=== PATIENT | male | born 1975 | race American Indian/Alaskan Native ===

== ENCOUNTER 2021-01-12 16:30 | Emergency (ER) | payer BC ==
[2021-01-12] MEDS ORDERED: HYDROcodone/ACETAMINOPHEN 5-325 MG TAB PO ONE (17:14)
--- NOTE | 2021-01-12 17:14 | Emergency Department Report ---
Blank Doc - Documentation Documentation: MSE was completed. Patient is here with left knee pain. This was nontraumatic. It is swollen. He has only localized pain. He may benefit from arthrocentesis. Radiographs were ordered. Another provider will follow up and arrange disposition.
--- NOTE | 2021-01-12 17:55 | XRay Report ---
Left knee-3 views INDICATION: effusion, L knee pain . COMPARISON: None. IMPRESSION: No acute osseous abnormality. Bipartite patella. Moderate-sized suprapatellar joint effu thang. Normal alignment. Mild medial and patellofemoral compartment DJD. Signer Name: Tray Pichardo MD Signed: 01/12/2021 5:51 PM Workstation Name: [id number]
--- NOTE | 2021-01-12 18:47 | Emergency Department Report ---
<VENECIA DANIELSON - Last Filed: 01/12/21 21:29> ED Extremity Problem HPI - General Chief complaint: Extremity Problem,Nontraumatic Stated complaint: LT KNEE INFLAMED PAIN Time Seen by Provider: 01/12/21 18:01 - Related Data Previous Rx's Medication Instructions Recorded Last Taken Type Acetaminophen/Codeine [Tylenol #3] 1 tab PO Q6H PRN #20 tab 06/05/13 Unknown Rx predniSONE [Deltasone] 50 mg PO QDAY #5 tab 06/05/13 Unknown Rx Acetaminophen with Codeine 1 each PO Q6HR #12 tablet 12/31/19 Unknown Rx [Acetaminophen-Codeine #4 TAB] Naproxen [Naprosyn] 500 mg PO BID #20 tablet 12/31/19 Unknown Rx Prednisone [predniSONE 10 mg 10 mg PO .TAPER #1 tab.ds.pk 12/31/19 Unknown Rx (6-Day Pack, 21 Tabs)] Ondansetron [Zofran Odt] 4 mg PO Q8HR PRN #14 tab.rapdis 01/12/21 Unknown Rx traMADoL [Ultram] 50 mg PO Q6HR PRN #14 tablet 01/12/21 Unknown Rx Allergies Allergy/AdvReac Type Severity Reaction Status Date / Time No Known Allergies Allergy Unverified 06/05/13 08:45 ED Past Medical Hx - Medications Home Medications: Home Medications Medication Instructions Recorded Confirmed Last Taken Type Acetaminophen/Codeine [Tylenol #3] 1 tab PO Q6H PRN #20 tab 06/05/13 Unknown Rx predniSONE [Deltasone] 50 mg PO QDAY #5 tab 06/05/13 Unknown Rx Acetaminophen with Codeine 1 each PO Q6HR #12 tablet 12/31/19 Unknown Rx [Acetaminophen-Codeine #4 TAB] Naproxen [Naprosyn] 500 mg PO BID #20 tablet 12/31/19 Unknown Rx Prednisone [predniSONE 10 mg 10 mg PO .TAPER #1 tab.ds.pk 12/31/19 Unknown Rx (6-Day Pack, 21 Tabs)] Ondansetron [Zofran Odt] 4 mg PO Q8HR PRN #14 tab.rapdis 01/12/21 Unknown Rx traMADoL [Ultram] 50 mg PO Q6HR PRN #14 tablet 01/12/21 Unknown Rx ED Medical Decision Making - Radiology Data Radiology results: report reviewed - Medical Decision Making Patient came in secondary to left knee pain. There is no history of injury or trauma. This started over the last several days and progressively worsened. He has gotten more more pain and more more swelling. The swelling is causing so much pain that he cannot walk. He has no fevers or chills per there is no cough congestion. Is never had symptoms like this before. There is no other joint involvement. Pain is constant and worse with weightbearing, palpation, and movement. Synovial fluid analysis showed a white blood cells of 11,000. Negative crystals. Given the patient clinical presentation and synovial fluid finding, I do not think this is a septic arthritis however patient strongly advised to return to the ER if he develop any fever or if his symptoms is getting worse. Patient given prescription for pain and advised to follow-up with his primary care physician in the next 2 to 3 days and to return to the ER if he develop any new symptoms. Patient also informed that there is a fluid culture that is still pending and he should receive a call after the culture resulted. ED Disposition Clinical Impression: Effusion, left knee, Acute knee pain Disposition: HOME / SELF CARE / HOMELESS Condition: Stable Instructions: Acute Knee Pain, Adult, Knee Effusion, [id number], Arthritis Prescriptions: traMADoL [Ultram] 50 mg PO Q6HR PRN #14 tablet PRN Reason: Pain Ondansetron [Zofran Odt] 4 mg PO Q8HR PRN #14 tab.rapdis PRN Reason: Nausea And Vomiting Referrals: NURIA HECK MD [Staff Physician] - 3-5 Days Forms: Work/School Release Form(ED) <JAREN FAJARDO - Last Filed: 01/13/21 09:22> ED Extremity Problem HPI - General Source: patient Mode of arrival: Wheelchair Limitations: No Limitations - History of Present Illness Initial comments: Patient came in secondary to left knee pain. There is no history of injury or trauma. This started over the last several days and progressively worsened. He has gotten more more pain and more more swelling. The swelling is causing so much pain that he cannot walk. He has no fevers or chills per there is no cough congestion. Is never had symptoms like this before. There is no other joint involvement. Pain is constant and worse with weightbearing, palpation, and movement. Severity scale (0 -10): 8 ED Review of Systems ROS: Stated complaint: LT KNEE INFLAMED PAIN Other details as noted in HPI Comment: All other systems reviewed and negative Constitutional: denies: fever Eyes: denies: eye pain ENT: denies: throat pain Respiratory: denies: cough Cardiovascular: denies: chest pain Endocrine: denies: unexplained weight loss Gastrointestinal: denies: abdominal pain Genitourinary: denies: dysuria Musculoskeletal: denies: back pain Skin: denies: rash Neurological: denies: headache Hematological/Lymphatic: denies: easy bruising ED Past Medical Hx - Past Medical History Previous Medical History?: Yes Hx Asthma: Yes (childhood asthma) - Surgical History Past Surgical History?: No - Family History Family history: no significant - Social History Smoking Status: Never Smoker Substance Use Type: None ED Physical Exam - General Limitations: No Limitations General appearance: alert, in distress (Uncomfortable), obese - Head Head exam: Present: atraumatic, normocephalic, normal inspection - Eye Eye exam: Present: normal appearance, EOMI. Absent: scleral icterus - ENT ENT exam: Present: normal exam, normal orophraynx, mucous membranes moist - Neck Neck exam: Present: normal inspection, full ROM - Respiratory Respiratory exam: Present: normal lung sounds bilaterally. Absent: respiratory distress - Cardiovascular Cardiovascular Exam: Present: regular rate, normal rhythm - GI/Abdominal GI/Abdominal exam: Present: soft. Absent: tenderness - Extremities Exam Extremities exam: Present: other (Significant edema to the left knee consistent with a tense effusion. There is no warmth or erythema associated with this. Patient has localized tenderness with palpation. There is pain with any type of range of motion involving the left knee. The ankle and hip on the left are unaffected. Right ) - Back Exam Back exam: Absent: CVA tenderness (R), CVA tenderness (L) - Neurological Exam Neurological exam: Present: alert, oriented X3, abnormal gait (Antalgic). Absent: motor sensory deficit - Psychiatric Psychiatric exam: Present: normal affect, normal mood - Skin Skin exam: Present: warm, dry ED Course Vital Signs 01/12/21 01/12/21 01/12/21 17:11 21:04 21:06 Temperature 98 F 98.1 F 98.1 F Pulse Rate 88 81 77 Respiratory 16 14 14 Rate Blood Pressure 137/77 Blood Pressure 144/85 135/79 [Left] O2 Sat by Pulse 96 99 99 Oximetry 01/12/21 21:07 Temperature Pulse Rate Respiratory Rate Blood Pressure Blood Pressure [Left] O2 Sat by Pulse 99 Oximetry - Reevaluation(s) Reevaluation #1: 01/12/21 18:43 X-ray have been noted. Case was discussed with the patient. We discussed arthrocentesis and gave verbal consent. Arthrocentesis has now been complete. Peers to be straw-colored and clear. We will await Gram stain and test results before initiating treatment. Reevaluation #2: 01/13/21 09:21 Late entry-01/12/21 1940h - care signed out to Makedastepan at the end of shift to follow up on synovial fluid results and arrange disposition. Cell count, gram stain, crystal studies pending. - Bursa Procedures Time Out Performed: Yes Indications: R/O septic bursitis Side of Body: left Site of Procedure: prepatellar bursa XRAY Obtained: other (Effusion) Antisepsis Used: Povidone-Iodine1% Local Anesthetic Used: Lidocaine 1% Amouth of Anesthesia Used (mls): 12 Fluid Obtained (mls): 30 Fluid Type: clear, other (Straw-colored) Patient Tolerated Procedure: well, no complications Complications: none Critical Care Time: No Critical care attestation.: If time is entered above; I have spent that time in minutes in the direct care of this critically ill patient, excluding procedure time. ED Disposition Is pt being admited?: No Does the pt Need Aspirin: No
[2021-01-12 21:07] VITALS: BP 135/79
[2021-01-12 21:17] LABS: Total Cells Counted 100 /mm3
== END 2021-01-12 22:01 | disposition home or self-care (01) ==
LOC: ED 16:30
DX: M25.462 Effusion, left knee (principal); M25.562 Pain in left knee; J45.909 Unspecified asthma, uncomplicated
CPT/HCPCS: 85048; 87116; 89051; 99284

== ENCOUNTER 2021-06-07 05:01 | Emergency (ER) | payer BC ==
[2021-06-07] MEDS ORDERED: KETOROLAC 30 MG/1 ML INJ IM ONE (05:52)
[2021-06-07] MEDS ORDERED: dexAMETHasone 20 MG/5 ML VIAL IM ONE (05:52)
[2021-06-07] MEDS ORDERED: ACETAMINOPHEN W/CODEINE 300-30 MG TAB PO ONE (05:52)
--- NOTE | 2021-06-07 06:51 | XRay Report ---
LEFT FOOT 3 VIEW(S) INDICATION / CLINICAL INFORMATION: foot pain swelling hx gout COMPARISON: None available. FINDINGS: BONES / JOINT(S): No acute fracture or subluxation. No significant arthritis. SOFT TISSUES: No significant abnormality. ADDITIONAL FINDINGS: None. IMPRESSION: 1. No acute pathology. No significant abnormality. Signer Name: Vaughn Borja II, MD Signed: 06/07/2021 6:46 AM Workstation Name: [id number]
--- NOTE | 2021-06-07 07:13 | Emergency Department Report ---
ED Extremity Problem HPI - General Chief complaint: Extremity Injury, Lower Stated complaint: FOOT PAIN/SWOLLEN Time Seen by Provider: 06/07/21 07:08 Source: patient Mode of arrival: Ambulatory Limitations: No Limitations - History of Present Illness Initial comments: 46-year-old morbidly obese -Stephie male with a past medical history of diabetes but no longer on medications (he states he was taken off meds by PCP) presents to the ER today with complaints of pain and swelling to dorsal aspect of his left foot as well as around the left heel. He denies any particular injury. He states that he woke up with the pain yesterday. He denies any strenuous activity. 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 He has no calf pain, chest pain or shortness of breath. He denies any particular skin discoloration. He reports no additional symptoms at this time. Patient denies any known history of arthritis or gout but after reviewing his past visits he was diagnosed with gout about 2 years ago. MD Complaint: joint swelling, joint paint -: days(s) (1) Severity scale (0 -10): 6 - Related Data Previous Rx's Medication Instructions Recorded Last Taken Type Acetaminophen/Codeine [Tylenol 1 tab PO Q6H PRN #20 tab 06/07/21 Unknown Rx /Codeine # 3 tab] Indomethacin 50 mg PO Q8H #30 cap 06/07/21 Unknown Rx Allergies Allergy/AdvReac Type Severity Reaction Status Date / Time No Known Allergies Allergy Unverified 06/05/13 08:45 ED Review of Systems ROS: Stated complaint: FOOT PAIN/SWOLLEN Other details as noted in HPI Comment: All other systems reviewed and negative Respiratory: denies: cough, shortness of breath, wheezing Cardiovascular: denies: chest pain, palpitations, dyspnea on exertion, edema, syncope, paroxysmal nocturnal dyspnea Gastrointestinal: denies: abdominal pain, nausea, diarrhea Genitourinary: denies: urgency, dysuria Musculoskeletal: joint swelling, arthralgia. denies: back pain Skin: denies: rash, lesions, pruritus Neurological: denies: headache, weakness, paresthesias, abnormal gait, vertigo Psychiatric: denies: anxiety, depression, auditory hallucinations, visual hallucinations, homicidal thoughts, suicidal thoughts Hematological/Lymphatic: denies: easy bleeding, easy bruising, swollen glands ED Past Medical Hx - Past Medical History Previous Medical History?: Yes Hx Asthma: Yes (childhood asthma) - Surgical History Past Surgical History?: No - Social History Smoking Status: Never Smoker Substance Use Type: None - Medications Home Medications: Home Medications Medication Instructions Recorded Confirmed Last Taken Type Acetaminophen/Codeine [Tylenol 1 tab PO Q6H PRN #20 tab 06/07/21 Unknown Rx /Codeine # 3 tab] Indomethacin 50 mg PO Q8H #30 cap 06/07/21 Unknown Rx ED Physical Exam - General Limitations: No Limitations ED Course Vital Signs 06/07/21 06/07/21 06/07/21 05:11 06:16 07:57 Temperature 97.9 F Pulse Rate 82 73 Respiratory 18 14 20 Rate Blood Pressure 127/76 O2 Sat by Pulse 94 97 Oximetry ED Medical Decision Making - Radiology Data Radiology results: report reviewed Patient: TERESA BAUM JR MR #: [id number] : 1975 Acct:[id number] Age/Sex: 46 / M ADM Date: 06/07/21 Loc: ED Attending Dr: Ordering Physician: AYLIN GREENWOOD NP Date of Service: 06/07/21 Procedure(s): XR foot 3+V LT Accession Number(s): [id number] cc: AYLIN GREENWOOD NP Fluoro Time In Minutes: LEFT FOOT 3 VIEW(S) INDICATION / CLINICAL INFORMATION: foot pain swelling hx gout COMPARISON: None available. FINDINGS: BONES / JOINT(S): No acute fracture or subluxation. No significant arthritis. SOFT TISSUES: No significant abnormality. ADDITIONAL FINDINGS: None. IMPRESSION: 1. No acute pathology. No significant abnormality. Signer Name: Bisi Borja II, MD Signed: 06/07/2021 6:46 AM Workstation Name: [id number] Transcribed By: COSMO Dictated By: BISI BORJA II, MD Electronically Authenticated By: BISI BORJA II, MD Signed Date/Time: 06/07/21645 DD/ 5 TD/TT: - Medical Decision Making X-ray does not show anything acute. Patient exam is concerning for acute gout. He has no chest pain or shortness of breath. He has no calf tenderness on exam. He has no significant lower extremity swelling. No evidence of cellulitis, compartment syndrome, acute arterial occlusion, DVT, septic joint or any other acute abnormalities requiring any additional testing, specialist consult or admission at this time. Fingerstick blood sugar was 97. Discussed suspected diagnosis and treatment plan with patient. He expressed understanding and agreed with plan. Patient was stable at time of discharge. Critical care attestation.: If time is entered above; I have spent that time in minutes in the direct care of this critically ill patient, excluding procedure time. ED Disposition Clinical Impression: Left foot pain, Acute gout Disposition: HOME / SELF CARE / HOMELESS Is pt being admited?: No Does the pt Need Aspirin: No Condition: Stable Instructions: Low-Purine Eating Plan, Foot Pain Additional Instructions: I recommend that you take the indomethacin as prescribed and take the Tylenol threes as prescribed. Use the Korey wrap as discussed and elevate your leg as of ten as possible. Follow-up with your primary care doctor next week. Return to the ER if any of your symptoms changes or worsens in any way. Prescriptions: Indomethacin 50 mg PO Q8H #30 cap Acetaminophen/Codeine [Tylenol /Codeine # 3 tab] 1 tab PO Q6H PRN #20 tab PRN Reason: Pain Referrals: PRIMARY CARE, [Primary Care Provider] - 3-5 Days Time of Disposition: 07:47
[2021-06-07 07:42] VITALS: BP 127/76
== END 2021-06-07 08:05 | disposition home or self-care (01) ==
LOC: ED 05:01
DX: M10.9 Gout, unspecified (principal); M79.672 Pain in left foot; J45.909 Unspecified asthma, uncomplicated; Z79.899 Other long term (current) drug therapy
CPT/HCPCS: 73630; 82962; 96372; 99283; J1100; J1885

== ENCOUNTER 2021-10-11 05:06 | Emergency (ER) | payer SELFPAY ==
[2021-10-11 05:19] VITALS: BP 133/88
== END 2021-10-13 06:52 | disposition left against medical advice (07) ==
LOC: ED 05:06
DX: M79.671 Pain in right foot (principal); Z53.21 Procedure and treatment not carried out due to patient leaving prior to being seen by health care provider